=== PATIENT | male | born 1945 | race Caucasian/White ===

== ENCOUNTER 2022-05-30 07:06 | Emergency (ER) | payer MEDICARE ==
[~2022-05-30] VITALS: Ht 170.2 cm; Wt 90.7 kg
[2022-05-30 08:42] LABS: URINE BILIRUBIN - DIPSTICK NEGATIVE (NEGATIVE); URINE BLOOD DIPSTICK NEGATIVE (NEGATIVE); URINE COLOR YELLOW; URINE GLUCOSE - DIPSTICK NEGATIVE (NEGATIVE); URINE KETONE NEGATIVE (NEGATIVE); URINE LEUK ESTERASE NEGATIVE (NEGATIVE); URINE PH 5.5 (4.5-8.0); URINE PROTEIN - DIPSTICK NEGATIVE (NEG-TRACE); URINE SPECIFIC GRAVITY 1.025; URINE UROBILINOGEN - DIPSTICK 0.2 E.U./dL (0.2)
[2022-05-30 08:43] LABS: BASO% 0.3 % (0-3); EOS% 0.3 % (0-8); HEMATOCRIT 46.3 % (39.0-50.0); HEMOGLOBIN 15.5 g/dl (14.0-18.0); IMMATURE GRANULOCYTES 0.9 % (0.0-5.0); LYMPH% 9.7 % (15-41); MEAN CELL VOLUME 93.5 fL CALC (80.0-100.0); MEAN CORPUSCULAR HGB 31.3 pG CALC (26.0-32.0); MEAN CORPUSCULAR HGB CONC 33.5 g/dL CAL (32.0-36.0); MONO% 9.3 % (2-13); NEUT# 7.46 thou/uL (1.82-7.42); NEUT% 79.5 % (42-76); RED BLOOD COUNT 4.95 mill/uL (4.70-6.10); RED CELL DISTRI WIDTH 12.9 % (11.5-15.5)
[2022-05-30 08:44] LABS: URINE NITRITE - DIPSTICK NEGATIVE (Negative)
[2022-05-30 08:48] LABS: ALBUMIN 4.7 g/dL (3.2-5.0); BILIRUBIN, TOTAL 0.4 mg/dL (0.2-1.3); CREATININE 1.4 mg/dL (0.7-1.3); POTASSIUM 4.5 mmol/l (3.5-5.1); TOTAL PROTEIN 7.9 g/dL (6.3-8.2)
[2022-05-30 10:46] VITALS: BP 173/72
[2022-05-30] MEDS ORDERED: TAMSULOSIN0.4 MG PO (10:55)
[2022-05-31] MEDS ORDERED: FINASTERIDE5 MG PO (20:54)
[2022-05-31] MEDS ORDERED: GABAPENTIN100 MG PO (20:55)
[2022-05-31] MEDS ORDERED: CYMBALTA20 MG PO (20:56)
[2022-05-31] MEDS ORDERED: LOSARTAN POTASS50 MG PO (20:56)
== END 2022-05-30 11:09 | disposition home or self-care (01) ==
LOC: ED 07:06
PROVIDERS: Emergency Medicine
DX: N20.1 Calculus of ureter (principal); I10 Essential (primary) hypertension

== ENCOUNTER 2022-05-31 19:41 | Emergency (ER) | payer MEDICARE ==
[2022-05-31] VITALS (7 sets, daily range): BP systolic 99–137; BP diastolic 60–89
[~2022-05-31] VITALS: Ht 170.2 cm; Wt 131.0 kg
[~2022-05-31 19:41] MED LIST: TAMSULOSIN0.4 MG PO
[2022-05-31] MEDS ORDERED: FINASTERIDE5 MG PO (20:54)
[2022-05-31] MEDS ORDERED: GABAPENTIN100 MG PO (20:55)
[2022-05-31] MEDS ORDERED: LOSARTAN POTASS50 MG PO (20:56)
[2022-05-31] MEDS ORDERED: CYMBALTA20 MG PO (20:56)
[2022-05-31 21:18] LABS: URINE BILIRUBIN - DIPSTICK NEGATIVE (NEGATIVE); URINE BLOOD DIPSTICK NEGATIVE (NEGATIVE); URINE COLOR YELLOW; URINE GLUCOSE - DIPSTICK NEGATIVE (NEGATIVE); URINE KETONE NEGATIVE (NEGATIVE); URINE LEUK ESTERASE NEGATIVE (NEGATIVE); URINE PROTEIN - DIPSTICK NEGATIVE (NEG-TRACE); URINE UROBILINOGEN - DIPSTICK 0.2 E.U./dL (0.2)
[2022-05-31 21:19] LABS: BASO% 0.2 % (0-3); EOS% 0.5 % (0-8); HEMATOCRIT 42.5 % (39.0-50.0); IMMATURE GRANULOCYTES 0.1 % (0.0-5.0); LYMPH% 11.7 % (15-41); MEAN CELL VOLUME 94.4 fL CALC (80.0-100.0); MEAN CORPUSCULAR HGB 31.1 pG CALC (26.0-32.0); MEAN CORPUSCULAR HGB CONC 32.9 g/dL CAL (32.0-36.0); MONO% 12.4 % (2-13); NEUT# 6.52 thou/uL (1.82-7.42); NEUT% 75.1 % (42-76); RED BLOOD COUNT 4.5 mill/uL (4.70-6.10); RED CELL DISTRI WIDTH 12.8 % (11.5-15.5)
[2022-05-31 21:19] LABS: URINE NITRITE - DIPSTICK NEGATIVE (Negative)
[2022-05-31 21:32] LABS: CREATININE 1.6 mg/dL (0.7-1.3); POTASSIUM 4.3 mmol/l (3.5-5.1)
== END 2022-05-31 22:50 | disposition home or self-care (01) ==
LOC: ED 19:41
PROVIDERS: Family Medicine
PROC: 0T9B70Z Drainage of Bladder with Drainage Device, Via Natural or Artificial Opening (ICD-10-PCS; principal; 2022-05-31)
DX: K59.00 Constipation, unspecified (principal); N40.1 Benign prostatic hyperplasia with lower urinary tract symptoms; R33.8 Other retention of urine; N20.1 Calculus of ureter; I10 Essential (primary) hypertension; F17.200 Nicotine dependence, unspecified, uncomplicated

== ENCOUNTER 2024-05-31 10:07 | Emergency (ER) | payer MEDICARE ==
[~2024-05-31] VITALS: Ht 170.2 cm; Wt 89.0 kg
[~2024-05-31 10:07] MED LIST changes: +CYMBALTA20 MG PO; +FINASTERIDE5 MG PO; +GABAPENTIN100 MG PO; +LOSARTAN POTASS50 MG PO
[2024-05-31 10:26] VITALS: BP 137/86
[2024-05-31 10:30] VITALS: BP 132/84
[2024-05-31 10:57] LABS: EOS% 2.6 % (0-8); HEMATOCRIT 44.9 % (39.0-50.0); HEMOGLOBIN 14.8 g/dl (14.0-18.0); IMMATURE GRANULOCYTES 0.2 % (0.0-5.0); LYMPH% 26.3 % (15-41); MEAN CELL VOLUME 97.6 fL CALC (80.0-100.0); MEAN CORPUSCULAR HGB 32.2 pG CALC (26.0-32.0); MONO% 11.1 % (2-13); NEUT# 2.97 thou/uL (1.82-7.42); NEUT% 58.8 % (42-76); RED BLOOD COUNT 4.6 mill/uL (4.70-6.10); RED CELL DISTRI WIDTH 12.9 % (11.5-15.5)
[2024-05-31 11:01] VITALS: BP 108/73
[2024-05-31 11:11] LABS: ALBUMIN 4.3 g/dL (3.2-5.0); CREATININE 0.9 mg/dL (0.7-1.3); TOTAL PROTEIN 7.1 g/dL (6.3-8.2)
[2024-05-31 11:12] LABS: BILIRUBIN, TOTAL 0.6 mg/dL (0.2-1.3)
[2024-05-31 14:25] LABS: URINE BILIRUBIN - DIPSTICK Negative (NEGATIVE); URINE BLOOD DIPSTICK Negative (NEGATIVE); URINE COLOR Yellow; URINE GLUCOSE - DIPSTICK Negative (NEGATIVE); URINE KETONE Negative (NEGATIVE); URINE LEUK ESTERASE Negative (NEGATIVE); URINE NITRITE - DIPSTICK Negative (Negative); URINE PH 5.5 (4.5-8.0); URINE PROTEIN - DIPSTICK Negative (NEG-TRACE); URINE SPECIFIC GRAVITY 1.015; URINE UROBILINOGEN - DIPSTICK 0.2 E.U./dL (0.2)
[2024-05-31] MEDS ORDERED: METRONIDAZOLE500 MG PO (15:01)
[2024-05-31] MEDS ORDERED: CIPROFLOXACN500 MG PO (15:01)
[2024-05-31 15:03] VITALS: BP 108/73
== END 2024-05-31 15:24 | disposition home or self-care (01) ==
LOC: ED 10:07
PROVIDERS: Emergency Medicine
DX: R10.31 Right lower quadrant pain (principal); R10.32 Left lower quadrant pain; Z87.19 Personal history of other diseases of the digestive system; Z87.11 Personal history of peptic ulcer disease; Z95.0 Presence of cardiac pacemaker
CPT/HCPCS: Q9967